=== PATIENT | male | born 1980 | race Caucasian/White ===

== ENCOUNTER 2022-05-21 18:35 | Emergency (ER) | payer SELFPAY ==
[~2022-05-21] VITALS: Ht 180.3 cm; Wt 72.7 kg
[2022-05-21 18:42] VITALS: BP 116/76; TEMP 97.7
[2022-05-21 20:35] VITALS: PULSE 99
== END 2022-05-21 20:36 | disposition home or self-care (01) ==
LOC: COL.ER 18:35
DX: I87.8 Other specified disorders of veins (principal); F17.200 Nicotine dependence, unspecified, uncomplicated; Z28.310 Unvaccinated for COVID-19